=== PATIENT | female | born 1960 | race Caucasian/White ===

== ENCOUNTER 2023-10-04 20:45 | Emergency (ER) | payer BC, SELFPAY ==
[2023-10-04 20:50] VITALS: BP 134/95
[2023-10-04 21:28] VITALS: BMI 25.3
[2023-10-04 21:51] VITALS: BP 130/76
[2023-10-04 22:00] VITALS: BP 125/78
[2023-10-04 23:00] VITALS: BP 123/63
--- NOTE | 2023-10-04 23:11 | ED.GENMED ---
History of Present Illness
General
Chief Complaint: Allergic Reaction
Time Seen by Provider: 10/04/23 21:16
Travel History
Have you had any contact with someone who has COVID-19?: No
Do you have any symptoms of coronavirus? Fever > 100 degrees, chills, cough, shortness of breath, sore throat, loss of taste or smell, muscle aches, or headache?: No
History of Present Illness
History of Present Illness:
62-year-old female with no significant past medical history presents to the emergency department for evaluation of diffuse hives and itching developing at approximately 7 to 8 PM. She took 50 mg of diphenhydramine at approximately 8:30 PM with only
minimal improvement. Denies any recent changes to her medications, soaps, laundry detergent, and denies any ill contacts at home. No fevers or chills. Denies any recent illnesses of any kind.
Past History
Past History
ED Past Medical History: Psychiatric (Anxiety)
ED Past Surgical History: Other
Social History
Personal:
Review of Systems
Review of Systems
Allergies reviewed?: Yes
All Other Systems: ROS reviewed and negative except as documented in HPI and ROS
Phy Exam
Physical Exam
Physical Exam:
GEN: Well appearing, NAD, WDWN
HEENT: Oral mucosa moist, no scleral icterus
Cardiac: Regular rate
Lung: No respiratory distress, no tachypnea
MSK: No gross deformity or injuries
Skin: Good color, no pallor or jaundice. Numerous excoriations and traumatic petechiae in a linear fashion to the upper extremities and mid to lower torso. There is scant urticaria to the upper back. No vesicles
Neuro: AO x3, moves all extremities freely
Psych: Calm, cooperative
Course
Orders/Labs/Results
Orders:
Orders
10/04/23 22:41
Diphenhydramine [Benadryl] 25 mg IM NOW STA
Famotidine [Pepcid] 40 mg PO NOW STA
Prednisone [Deltasone] 40 mg PO NOW STA
Vital Signs
Initial and Last Documented VS:
Initial Vital Signs
Temp Pulse Resp BP Pulse Ox
97.9 F 94 24 134/95 97
10/04/23 20:50 10/04/23 20:50 10/04/23 20:50 10/04/23 20:50 10/04/23 20:50
Last Documented Vital Signs
Temp Pulse Resp BP Pulse Ox
97.9 F 72 17 123/63 94
10/04/23 20:50 10/04/23 23:00 10/04/23 23:00 10/04/23 23:00 10/04/23 23:00
MDM/Problems Addressed
MDM/Problems Addressed:
The petechiae are clearly traumatic as there is a linear hand shaped pattern. No vesicles or bullae. Unclear etiology. Will treat supportively with antihistamines and corticosteroids
*Critical Care Note
Total Time (30-74mins, 75-104mins- exclusive of procedures): Not Applicable
ED Attending Note
-
Portions of this chart may have been created with voice recognition software.� Occasional wrong word or��sound alike� substitutions may have occurred due to the inherent limitations of voice recognition software.
Discharge Plan
Departure
Patient Disposition: Home (Routine Discharge)
Date of Disposition: 10/04/23
Time of Disposition: 23:11
Patient with high blood pressure during this ER visit?: No
Discharge Problem:
Urticaria
Instructions: Hives (DC)
Prescriptions:
New
methylprednisolone [Medrol ([place])] 4 mg tablets,dose pack
See Rx Instructions .ROUTE .COMPLEX Qty: 21 0RF
Rx Instructions:
orally per package directions
Referrals:
Danny Anderson DO [Family Provider] -
Interventions
Interventions:
*Risk Screen - Suicide Last Done: 10/04/23 20:50
*General Assessment Last Done: 10/04/23 21:28
*Neglect/Abuse Screening Last Done: 10/04/23 20:50
ED- Fall Risk Assessment Last Done: 10/04/23 21:48
ED- Cardiac Assessment Last Done: 10/04/23 21:48
ED- Pulmonary Assessment Last Done: 10/04/23 21:48
ED-Skin Assessment Last Done: 10/04/23 21:48
[2023-10-04] MEDS: DELTASONE 40 MG PO (23:22)
[2023-10-04] MEDS: PEPCID 40 MG PO (23:22)
[2023-10-04] MEDS: BENADRYL 25 MG IM (23:22)
== END 2023-10-04 23:43 | disposition home or self-care (01) ==
LOC: EMR 20:45
PROVIDERS: EMERGENCY PHYSICIAN Emergency Medicine; FAMILY PHYSICIAN Family Medicine
DX: L50.0 Allergic urticaria (principal)
CPT/HCPCS: 99282; 96372

== ENCOUNTER → 2024-04-28 10:12 | Outpatient (REF) | payer BC, SELFPAY | LOC: RAD 10:12 | PROVIDERS: ATTENDING PHYSICIAN Internal Medicine; FAMILY PHYSICIAN Student in an Organized Health Care Education/Training Program | DX: M79.641 Pain in right hand (principal) | CPT/HCPCS: 73130 ==

== ENCOUNTER → 2024-05-10 07:32 | Outpatient (REF) | payer BC, SELFPAY | LOC: HWRAD 07:32 | PROVIDERS: ATTENDING PHYSICIAN Student in an Organized Health Care Education/Training Program | DX: R22.1 Localized swelling, mass and lump, neck (principal) | CPT/HCPCS: 76536 ==

== ENCOUNTER → 2024-05-17 07:28 | Outpatient (REF) | payer BC, SELFPAY | LOC: HWWDC 07:28 | PROVIDERS: ATTENDING PHYSICIAN Student in an Organized Health Care Education/Training Program | DX: Z13.820 Encounter for screening for osteoporosis (principal); Z12.31 Encounter for screening mammogram for malignant neoplasm of breast | CPT/HCPCS: 77063; 77067; 77080 ==

== ENCOUNTER → 2024-06-29 11:03 | Outpatient (REF) | payer BC, SELFPAY | LOC: HWRAD 11:03 | PROVIDERS: ATTENDING PHYSICIAN Student in an Organized Health Care Education/Training Program | DX: M25.511 Pain in right shoulder (principal) | CPT/HCPCS: 73030 ==

== ENCOUNTER → 2025-01-25 11:11 | Outpatient (REF) | payer BC, SELFPAY | LOC: HWRAD 11:11 | PROVIDERS: ATTENDING PHYSICIAN Family Medicine | DX: S09.90XA Unspecified injury of head, initial encounter (principal) | CPT/HCPCS: 70450 ==

== ENCOUNTER → 2025-05-15 08:48 | Outpatient (REF) | payer BC, SELFPAY | LOC: HWRAD 08:48 | PROVIDERS: ATTENDING PHYSICIAN Orthopaedic Surgery; FAMILY PHYSICIAN Family Medicine | DX: R22.42 Localized swelling, mass and lump, left lower limb (principal) | CPT/HCPCS: 76882 ==

== ENCOUNTER → 2025-07-13 07:58 | Outpatient (REF) | payer BC, SELFPAY | LOC: HWWDC 07:58 | PROVIDERS: ATTENDING PHYSICIAN Physician Assistant; FAMILY PHYSICIAN Family Medicine | DX: Z12.31 Encounter for screening mammogram for malignant neoplasm of breast (principal) | CPT/HCPCS: 77063; 77067 ==